=== PATIENT | male | born 1965 | race African-American/Black ===

== ENCOUNTER 2022-10-12 22:16 | Emergency (ER) | payer OTHER ==
--- NOTE | 2022-10-12 23:00 | NUR ---
Patient not triaged by [employer]. Called patient @[id number] to triage. Patient not in the waiting room.
== END 2022-10-13 01:25 | disposition left against medical advice (07) ==
LOC: ER 22:16
DX: Z53.21 Procedure and treatment not carried out due to patient leaving prior to being seen by health care provider (principal)